=== PATIENT | male | born 2000 | race Two or more races ===

== ENCOUNTER 2024-10-31 11:44 | Emergency (ER) | payer OTHER, SELFPAY ==
--- NOTE | 2024-10-31 11:47 | ED_ITS ---
HPI - General Adult General Chief complaint: Wound/Laceration Stated complaint: l hand laceration at work Time Seen by Provider: 10/31/24 11:51 Source: patient, RN notes reviewed and old records reviewed Mode of arrival: ambulatory History of Present Illness ED Provider: Ac [facility] narrative: Patient is a 24-year-old right hand dominant male presenting to the emergency department with complaint of laceration to left hand between index finger and thumb. Occurred around 45 mins prior to arrival. Accidentally cut at work with a zi knife. Patient states he just put a new blade on the knife. Unsure last Tdap. Denies weakness, numbness, tingling. complaint: laceration Onset (ago): minute(s) Location: left and upper extremity Related Data Allergies Allergy/AdvReac Type Severity Reaction Status Date / Time No Known Allergies Allergy Verified 10/31/24 11:49 Review of Systems 2 Review of Systems: As per HPI Yes all other systems are reviewed and are negative Constitutional: Constitutional: Reports as per HPI [facility] Social History Social History Advance Directives: No Advance Directives Information Provided: Yes Physical Exam ED Vital Signs: Vital Signs - 24 hr 10/31/24 11:48 Temperature 99.0 F Pulse Rate 71 Respiratory Rate 16 Blood Pressure 138/101 H Pulse Oximetry 94 Oxygen Delivery Method Room Air BMI result Body Mass Index 29.5 Vital signs have been reviewed and appear to be correct. Blood pressure elevated. Heart rate normal. Respiratory rate normal. Temperature normal. Oxygen saturation normal. Const General: cooperative, healthy appearing and no acute distress Orientation/consciousness: oriented to person, oriented to place, oriented to time and patient oriented x3 Limitations: no limitations [facility] Head: Yes normocephalic and Yes atraumatic Ears: external ears normal General nose exam: Normal external nose present Face and sinus: Yes face symmetric Mouth: oropharynx normal and moist mucous membranes Throat: Yes uvula midline Eyes Pupils: Equal, round and reactive pupils present Neck Neck: Yes normal visual inspection and Yes supple Resp Effort & Inspection: normal respiratory effort and able to speak in complete sentences Auscultation: clear to auscultation bilaterally Cardio Rate: regular rate Rhythm: regular rhythm Heart sounds: S1 normal heart sound present and S2 normal heart sound present GI Palpation (GI): Soft to palpation and nontender Auscultation: normoactive bowel sounds General: Yes no CVA tenderness Back/Spine/Pelvis Back: no CVA tenderness Skin General skin exam: elasticity normal and turgor normal Neuro General: oriented to person, oriented to place, oriented to time, patient oriented x3, moves all extremities, no focal motor deficits and CN's II-XI intact bilaterally Cranial nerves: Yes Equal, round and reactive pupils present Cognition (Neuro): normal cognition Extrem General: Yes full ROM, Yes no pedal edema and Yes no calf tenderness Left upper extremity: hand Details: normal capillary refill, neuromotor exam normal, neurosensory exam normal, tendon exam normal, normal ROM of fingers and laceration dorsal hand Details: linear (2cm, minor bleeding), involving subcutaneous tissue, with motor nerve function intact and with sensation intact; no foreign body present and not contaminated Hand/finger images: 2 1. 2cm laceration Psych Mental Status: mental status grossly normal Affect: normal affect Thought process: Normal thought process present Medications Administered Discontinued Medications Generic Name Dose Route Start Last Admin Trade Name Freq PRN Reason Stop Dose Admin Bacitracin 1 appl 10/31/24 11:50 10/31/24 11:56 Bacitracin Oint 0.9 Gm Packet TOPICAL 10/31/24 11:51 1 appl ONCE ONE Administration Protocol Diphtheria/Tetanus/Acell Pertussis 0.5 ml 10/31/24 11:50 10/31/24 11:56 Diphth,Pertus(Acell),Tet Adult 0.5 Ml Syringe IM 10/31/24 11:51 0.5 ml .ONCE ONE Administration Lidocaine HCl 5 ml 10/31/24 11:50 10/31/24 11:56 Lidocaine Hcl 1 % Mpf 5 Ml Vial INFILTRATI 10/31/24 11:51 5 ml ONCE ONE Administration Procedures Laceration Laceration 1: Site: hand Side (If applicable): left Size (cm): 2 Description: linear Depth: simple, single layer Local Anesthetic: lidocaine 1% Amount of anesthesia used (mL): 4 Pre-repair: wound explored, irrigated extensively and deep structures intact Skin layer closed with: other (prolene) Size (cm): 5-0 Number of sutures: 6 Technique: simple, interrupted Medical Decision Making Medical Decision Making MDM Narrative: Patient is a 24-year-old right hand dominant male presenting to the emergency department with complaint of laceration to left hand between index finger and thumb. On exam patient is awake, A+Ox3, VS WNL, afebrile, normal neurological exam without focal deficits, physical exam findings as above. Given reported symptoms and physical exam findings, initial differential includes but is not limited to laceration. No evidence of tendon injury or neurovascular compromise on physical exam. Laceration repaired as per procedure note, patient tolerated well, bacitracin and dressing applied. Tdap updated. Wound care instructions discussed at bedside. Return precautions discussed. Patient verbalized understanding of and agreement with plan. Differential Diagnosis Differential Diagnoses: The differential diagnosis associated with the presentation includes As per [facility] Admission/Observation Consideration of admission/observation: Escalation of care including admission/observation considered Patient would have been admitted to the hospital had their work up had any findings where hospital admission was appropriate and their clinical presentation warranted hospital admission. External Record Review External record reviewed: Inpatient record, Office record and Outpatient record Discharge Plan Discharge Clinical Impression: Laceration of hand Patient Disposition: Home, Self-Care Instructions: Care For Your Stitches (DC), Laceration (DC), Stitches Removal (ED) Additional Instructions: You have been evaluated in the emergency department today for a laceration to your hand. Your laceration was repaired in the emergency department with 6 sutures. Please keep the area surrounding the laceration clean and dry and keep dressing in place for the next 24 hours. After that please change the dressing and assess the wound daily. Do not submerge the wound in water until the stitches has been removed and the wound has fully healed (no washing dishes, swimming, hot tubs, etc. and ESPECIALLY no outdoor water). Keep the area out of direct sunlight for the next 6 months to help prevent scarring. You should have the sutures removed in 7-10 days. Your tetanus vaccine (Tdap) was updated at today's visit. If you develop fever, redness, swelling at the site of your laceration, or thick yellow drainage please come back to the ER for a wound check. Stand Alone Forms: Work/School Release Print Language: Sami
[2024-10-31 11:48] VITALS: BP 138/101; PULSE 71; RESP 16; TEMP 37.2; O2SAT 94; BMI 29.5
[2024-10-31] MEDS: Lidocaine HCl 1 % MPF 5 ML VIAL INFILTRATI (11:56)
[2024-10-31] MEDS: Diphth,Pertus(ACell),Tet Adult 0.5 ML SYRINGE IM (11:56)
[2024-10-31] MEDS: Bacitracin Oint 0.9 GM PACKET 1 APPL TOPICAL (11:56)
[2024-10-31 12:40] VITALS: BP 138/101; PULSE 71; RESP 16; TEMP 37.2; O2SAT 94
== END 2024-10-31 12:41 | disposition home or self-care (01) ==
PROVIDERS: Emergency Provider Emergency Medicine
DX: S61.412A Laceration without foreign body of left hand, initial encounter (principal); W26.0XXA Contact with knife, initial encounter; Y93.9 Activity, unspecified; Y92.59 Other trade areas as the place of occurrence of the external cause; Y99.0 Civilian activity done for income or pay; Z23 Encounter for immunization
CPT/HCPCS: 12001; 12002; 90471; 90715; 99282; 99284; J2003